=== PATIENT | female | born 1980 | race African-American/Black ===

== ENCOUNTER 2020-08-20 22:05 | Emergency (ER) | payer OTHER ==
[~2020-08-20] VITALS: Ht 162.6 cm; Wt 81.7 kg
[2020-08-20 22:19] VITALS: BP 158/71
[2020-08-20] MEDS ORDERED: CYCLOBENZAPRINE5 MG PO (23:25)
[2020-08-20] MEDS ORDERED: HYDROCODON-ACE1 EAC7 PO (23:25)
[2020-08-20] MEDS ORDERED: MOBIC15 MG PO (23:25)
== END 2020-08-21 00:11 | disposition home or self-care (01) ==
LOC: ER 22:05
DX: S16.1XXA Strain of muscle, fascia and tendon at neck level, initial encounter (principal); M54.9 Dorsalgia, unspecified; R10.9 Unspecified abdominal pain; R07.89 Other chest pain; M25.511 Pain in right shoulder; R20.2 Paresthesia of skin; V43.52XA Car driver injured in collision with other type car in traffic accident, initial encounter; Y93.I9 Activity, other involving external motion; Y92.488 Other paved roadways as the place of occurrence of the external cause; Y99.8 Other external cause status